=== PATIENT | female | born 1980 | race Caucasian/White ===

== ENCOUNTER 2023-06-16 07:50 | Day surgery (SDC) | payer OTHER, MEDICAID ==
[~2023-06-16] VITALS: Ht 152.4 cm; Wt 68.9 kg
[2023-06-16 08:18] LABS: HCG,QUAL RESULT NEGATIVE (NEGATIVE)
[2023-06-16] MEDS ORDERED: MEPERIDINE 100 MG INJ. 100 MG/ML VIAL ONE (08:56)
[2023-06-16] MEDS ORDERED: MIDAZOLAM HCL 5 MG/5 ML VIAL ONE (08:56)
[2023-06-16] MEDS ORDERED: DIPHENHYDRAMINE INJ 50 MG/ML VIAL ONE (09:00)
[2023-06-16 11:50] VITALS: BP_SYST 110; PULSE 63; RESP 16; TEMP 97.5; O2SAT 99
== END 2023-06-16 10:40 | disposition home or self-care (01) ==
LOC: SDS 07:50 → SMU 07:51 → SDS 10:40
PROVIDERS: ATTEND Student in an Organized Health Care Education/Training Program
DX: R14.0 Abdominal distension (gaseous) (principal); K29.50 Unspecified chronic gastritis without bleeding; B96.81 Helicobacter pylori [H. pylori] as the cause of diseases classified elsewhere; E11.9 Type 2 diabetes mellitus without complications; Z79.899 Other long term (current) drug therapy
CPT/HCPCS: 43239; 84703; 88305; 88312; 88313; 99152; G0378; J1200; J2250; J2175